=== PATIENT | female | born 1985 | race Caucasian/White ===

== ENCOUNTER 2017-04-20 19:04 | Emergency (ER) | payer MEDICAID ==
[~2017-04-20] VITALS: Ht 162.6 cm; Wt 120.7 kg
[2017-04-20 19:05] VITALS: BP_SYST 125
[2017-04-20] MEDS ORDERED: ACETAMINOPHEN 500 MG TABLET PO ONE (20:15)
[2017-04-20 21:31] VITALS: BP_SYST 118
== END 2017-04-20 21:31 | disposition home or self-care (01) ==
LOC: SED 19:04
DX: O9A.211 Injury, poisoning and certain other consequences of external causes complicating pregnancy, first trimester (principal); S59.801A Other specified injuries of right elbow, initial encounter; J45.909 Unspecified asthma, uncomplicated; Z3A.10 10 weeks gestation of pregnancy; W18.39XA Other fall on same level, initial encounter; Y93.89 Activity, other specified; Y92.89 Other specified places as the place of occurrence of the external cause; Y99.8 Other external cause status
CPT/HCPCS: 81025; 99284